=== PATIENT | female | born 1985 | race Asian ===

== ENCOUNTER 2022-07-10 09:45 | Outpatient (CLI) | payer BC | END 2022-07-10 09:46 | disposition home or self-care (01) | LOC: RAD 09:45 | PROVIDERS: ATTEND Internal Medicine | DX: M54.50 Low back pain, unspecified (principal); M46.1 Sacroiliitis, not elsewhere classified | CPT/HCPCS: 72100; 72202 ==

== ENCOUNTER 2023-05-07 12:02 | Outpatient (CLI) | payer BC | END 2023-05-07 12:03 | disposition home or self-care (01) | LOC: SCSRAD 12:02 | PROVIDERS: ATTEND Internal Medicine | DX: M25.561 Pain in right knee (principal); M25.562 Pain in left knee ==